=== PATIENT | male | born 1995 | race Caucasian/White ===

== ENCOUNTER 2018-05-01 14:39 | Emergency (ER) | payer SELFPAY ==
[~2018-05-01] VITALS: Ht 177.8 cm; Wt 71.2 kg
--- NOTE | 2018-05-01 14:49 | NUR ---
PATIENT TAKEN TO BED VIA WHEEL CHAIR
[2018-05-01 14:50] VITALS: BP 132/80
--- NOTE | 2018-05-01 15:00 | NUR ---
patient to lobby awaiting available bed. vss. nad. bleeding controlled. vss. nad. gauze wrapped around laceration. pt to lobby with steady gait and without incidient.
--- NOTE | 2018-05-01 15:30 | NUR ---
patient called, no answer. searched lobby.
--- NOTE | 2018-05-01 15:50 | NUR ---
patient called, no answer. searched lobby.
--- NOTE | 2018-05-01 15:50 | NUR ---
PATIENT LEFT WITHOUT BEING SEEN BY DR. SALAZAR. NO FURTHER CARE PROVIDED FOR PATIENT.
== END 2018-05-01 15:50 | disposition left against medical advice (07) ==
LOC: MED 14:39
DX: S61.212A Laceration without foreign body of right middle finger without damage to nail, initial encounter (principal); W22.8XXA Striking against or struck by other objects, initial encounter; Y93.89 Activity, other specified; Y92.89 Other specified places as the place of occurrence of the external cause; Y99.8 Other external cause status